=== PATIENT | male | born 1965 | race Hispanic/Latino ===

== ENCOUNTER 2018-01-05 08:13 | Inpatient (IN) | payer BC ==
[2018-01-05] MEDS ORDERED: Sodium Chloride 0.9% 1,000 ML IV STA (08:50)
[2018-01-05] MEDS ORDERED: Dexamethasone 10 MG in Sodium Chloride 0.9% 50 ML IV ONE (08:50)
[2018-01-05 09:16] LABS: BASO % 0.3 % (0.0-2.0); EOS # 0.5 K/uL (0.0-0.7); EOS % 4.8 % (0.0-4.0); HEMOGLOBIN 13.3 g/dL (12.0-18.0); LYMPH # 1.2 K/uL (1.0-4.3); LYMPH % 10.9 % (20.0-40.0); MEAN CELL VOLUME 86.8 fl (80.0-94.0); MEAN CORPUSCULAR HEMOGLOBIN 29.6 pg (27.0-31.0); MEAN CORPUSCULAR HGB CONC 34.1 g/dL (33.0-37.0); MEAN PLATELET VOLUME 8.3 fl (7.2-11.7); MONO # 1.1 K/uL (0.0-0.8); MONO % 9.3 % (0.0-10.0); NEUT # 8.4 K/uL (1.8-7.0); NEUT % 74.7 % (50.0-75.0); NRBC % 0.1 % (0.0-0.0); RBC 4.5 Mil/uL (4.40-5.90); RED CELL DISTRIBUTION WIDTH 13.2 % (11.5-14.5); WHITE BLOOD COUNT 11.3 K/uL (4.8-10.8)
[2018-01-05 09:22] LABS: VENOUS BLOOD GAS BASE EXCESS 0.9 mmol/L (0.0-2.0); VENOUS BLOOD GAS PCO2 60 mmHg (40-60); VENOUS BLOOD GAS PO2 19 mm/Hg (30-55); VENOUS BLOOD PH 7.29 (7.32-7.43)
[2018-01-05 09:25] LABS: ALB/GLOB RATIO 1.1 (1.0-2.1); ALBUMIN 3.8 g/dL (3.5-5.0); ALT/SGPT 24 U/L (21-72); AST/SGOT 18 U/L (17-59); BLOOD UREA NITROGEN 17 mg/dl (9-20); CALCIUM 9.2 mg/dL (8.4-10.2); GFR AFRICAN-AMERICAN > 60; GFR NON-AFRICAN AMERICAN > 60
[2018-01-05] MEDS ORDERED: Iohexol 300 100 ML IJ ONE (09:44)
[2018-01-05] MEDS ORDERED: Sodium Chloride 0.9% 50 ML IV ONE (09:44)
--- NOTE | 2018-01-05 10:07 | RAD ---
HISTORY: cp COMPARISON: No prior. FINDINGS: LUNGS: No active pulmonary disease. PLEURA: No significant pleural effusion identified, no pneumothorax apparent. CARDIOVASCULAR: Cardiomegaly. OSSEOUS STRUCTURES: No significant abnormalities. VISUALIZED UPPER ABDOMEN: Normal. OTHER FINDINGS: None. IMPRESSION: No active disease. Cardiomegaly.
[2018-01-05] MEDS ORDERED: Morphine 4 MG/ML VIAL IVP ONE (10:12)
--- NOTE | 2018-01-05 12:00 | CT ---
PROCEDURE: CT NECK WITH CONTRAST HISTORY: neck swelling cellulitis abscess COMPARISON: None TECHNIQUE: CT of the neck with intravenous contrast. Coronal and sagittal reformats generated. Intravenous contrast dose: Omnipaque 300, 99 cc Radiation dose: DLP 628.36 mGy-cm This CT exam was performed using one or more of the following dose reduction techniques: Automated exposure control, adjustment of the mA and/or kV according to patient size, and/or use of iterative reconstruction technique. FINDINGS: Evaluation of the superficial neck soft tissues is remarkable for extensive dermal thickening and subcutaneous reactive change throughout the neck soft tissues superficial to the platysma from the thyroid cartilage up to level of the lower maxilla bilaterally. No fluid collections appreciate to suggest drainable abscess at this time although phlegmon relatively prominent inferior to than mental soft tissues with irregular dermal margins associated. No emphysema soft tissue changes are appreciated. No mandibular or inferior maxillary erosive changes to suggest osteomyelitis overtly. Evaluation of the deep neck soft tissues reflects prominent edema at the soft palate posteriorly, narrowing the lower Ansari so pharynx to only 2 mm greatest caliber. There is limited bilateral tonsillar pillar enlargement also. There is either chronic erosion or postoperative change related to the car Lantus and bony suggested nasal septum with a large anterior defect identified. Extensive bilateral ethmoid sinusitis is appreciated and nearly occludes the left maxillary sinus. Mild mucosal inflammatory changes affect the right maxillary and left sphenoid sinuses. Left frontal sinus is partially opacified as well. The lamina papyracea appear intact bilaterally with no a fatty injection medial to both that would in the Lala spread of infection into the orbits. The visualized intracranial space unremarkable with the oral cavity grossly nonfocal as well as the hypopharynx and larynx. The thoracic inlet is unremarkable. No contrast enhancement enhancement pattern suggest abscess although phlegmon is developing at the midline to the right submental superficial soft tissues. GLANDS: Parotid and submandibular glands unremarkable. Normal size thyroid gland, without nodule. LYMPH NODES: Supra and infrahyoid lymphadenopathy is appreciated including bilateral submandibular, jugular digastric and infrahyoid jugular digastric lymphadenopathy. Borderline supraclavicular lymphadenopathy is noted bilaterally. CERVICAL SPINE: No fracture or focal lesion. VASCULAR STRUCTURES: Unremarkable. OTHER FINDINGS: None. IMPRESSION: Extensive bilateral ethmoid and left maxillary sinusitis is appreciated partially affecting left frontal, right maxillary and left sphenoid sinuses as well with large bony and cartilaginous nasal septal defect postoperative or postinfectious/ central substance abuse. Extensive lower facial and diffuse neck cellulitis is appreciate without abscess including at the submental soft tissues anteriorly, which appear most affected. Supra and infrahyoid neck lymphadenopathy is appreciated and the nasopharynx soft tissues are edematous resulting in minimal residual lumen into oropharynx. Other than bony nasal septum, no additional bony erosive changes and the orbits appear intact intact. No evidence of intracranial abscess as imaged. Findings discussed with Dr. Martin 01/05/2018 11:45 a.m..
--- NOTE | 2018-01-05 12:02 | CARD ---
APPROVED REPORT EKG Measurement Heart [id number] DC [id number] <Conclusion> Sinus rhythm with premature atrial complexes Otherwise normal ECG
--- NOTE | 2018-01-05 12:06 | CT ---
PROCEDURE: Facial CT with contrast HISTORY: nasal and facial swelling COMPARISON: Neck CT with contrast 01/05/2018. TECHNIQUE: Volumetric CT examination of the face was performed using multiplanar multisequential technique with intravenous contrast. Multiplanar reformatted datasets provided for interpretation. Contrast Dose: Omnipaque 300, 95 cc Radiation dose:Total exam DLP = 628.36 mGy-cm. This CT exam was performed using one or more of the following dose reduction techniques: Automated exposure control, adjustment of the mA and/or kV according to patient size, and/or use of iterative reconstruction technique. FINDINGS: Extensive inflammatory, infectious and postoperative changes are identified involving the bony nasal septum, nasal turbinates and paranasal sinuses as well as the nasopharynx and superficial lower neck and face soft tissues which are described in great detail in separate neck CT also performed 01/05/2018. Please see separate report. Evaluation of the facial soft tissues from the level of the hard palate to the lower segments of the frontal bones reveals nasal dermal thickening diffusely throughout the mid to inferior extent of the nose related to cellulitis without definite abscess. Orbits are intact without suspicious findings with intact lamina papyracea despite prominent ethmoid sinusitis changes. The visualized bilateral frontal, temporal and sphenoid bones are intact exclusive of the bony nasal septum. Remaining skullbase anatomy appears unremarkable. No gross pattern suggests intracranial abscess at this time. IMPRESSION: Prominent nasal soft tissue edema compatible with cellulitis without obvious abscess. Please see separate neck CT with contrast describing prominent nasal sinus, nasopharyngeal and superficial lower facial and neck soft tissue abnormalities in detail. No obvious bilateral orbital pathology.
--- NOTE | 2018-01-05 12:30 | ED PDOC ---
HPI: Skin/Bite Injury Time Seen by Provider: 01/05/18 08:34 Chief Complaint (Nursing): Abnormal Skin Integrity Chief Complaint (Provider): Facial and Neck Swelling History Per: Patient History/Exam Limitations: no limitations Onset/Duration Of Symptoms: Days (2x) Current Symptoms Are (Timing): Still Present Quality Of Symptoms: Painful, Swollen Additional Complaint(s): 52 year old male presents to the ED complaining of lower facial and neck swelling onset for 2 days. Reports there was swelling on his chin initially that spread to the lower part of the chin and neck. Patient also developed pain. States he was seen in [place] and provided antibiotics which he has not refilled. He has had a nasal abscess that was drained months ago. Patient admits he snorts cocaine and heroin daily. Denies fever or vomiting. PMD: [place] Past Medical History Reviewed: Historical Data, Nursing Documentation, Vital Signs Vital Signs: Last Vital Signs Temp 97.8 F 01/06/18 13:00 Pulse 68 01/06/18 13:00 Resp 20 01/06/18 13:00 BP 128/80 01/06/18 13:00 Pulse Ox 99 01/06/18 13:00 - Medical History PMH: No Chronic Diseases - Surgical History Other surgeries: nasal abscess that was drained months ago - Family History Family History: States: Unknown Family Hx - Social History Current smoker - smoking cessation education provided: Yes (Light Smoker < 10 Cigarettes Daily) Alcohol: None Drugs: Cocaine, Other (heroin) - Home Medications Home Medications: Ambulatory Orders Medication Instructions Recorded Insulin Degludec [Tresiba 26 unit SC DAILY 01/05/18 Flextouch U-200] Lisinopril [Zestril] 40 mg PO DAILY 01/05/18 amLODIPine [Norvasc] 5 mg PO DAILY 01/05/18 cloNIDine [Catapres] 0.1 mg PO Q12 01/05/18 - Allergies Allergies/Adverse Reactions: Allergies Allergy/AdvReac Type Severity Reaction Status Date / Time clindamycin Allergy RASH Verified 01/05/18 08:23 Review of Systems ROS Statement: Except As Marked, All Systems Reviewed And Found Negative Constitutional: Negative for: Fever Gastrointestinal: Negative for: Vomiting Skin: Positive for: Other (facial and neck swelling ) Physical Exam - Reviewed Nursing Documentation Reviewed: Yes Vital Signs Reviewed: Yes - Physical Exam Appears: Positive for: Non-toxic, No Acute Distress Head Exam: Positive for: ATRAUMATIC, NORMAL INSPECTION, NORMOCEPHALIC Skin: Positive for: Normal Color, Warm, Dry Eye Exam: Positive for: EOMI, Normal appearance, PERRL ENT: Positive for: Other (swelling and redness on the nose, diffused swelling on the face ). Negative for: Normal ENT Inspection (no swelling or airway obstruction) Neck: Positive for: Supple. Negative for: Normal (redness and swelling with lymphadenopathy) Cardiovascular/Chest: Positive for: Regular Rate, Rhythm. Negative for: Murmur Respiratory: Positive for: Normal Breath Sounds. Negative for: Decreased Breath Sounds, Accessory Muscle Use, Respiratory Distress Gastrointestinal/Abdominal: Positive for: Normal Exam, Bowel Sounds, Soft. Negative for: Tenderness, Guarding, Rebound Back: Positive for: Normal Inspection. Negative for: L CVA Tenderness, R CVA Tenderness Extremity: Positive for: Normal ROM, Tenderness. Negative for: Pedal Edema, Deformity, Swelling Neurologic/Psych: Positive for: Alert, Oriented (x3). Negative for: Motor/ Sensory Deficits - Laboratory Results Result Diagrams: 01/06/18 04:20 01/06/18 04:20 - ECG O2 Sat by Pulse Oximetry: 95 (RA) Pulse Ox Interpretation: Normal Medical Decision Making Medical Decision Making: Time: 0848 Initial Impression: facial and neck swelling Differential Diagnosis includes but is not limited to: cellulites of face and neck, deep soft tissue infection r/o abscess of face and neck Initial Plan: --Venous Blood Gas Shock Panel --Maxillofacial w/ Contrast CT --Neck Soft Tissue w/ Contrast CT --EKG --CMP --Drug Screen, Urine --CBC w/ Differential --Chest Portable [RAD] --Glucose, POC Routine --Decadron Inj 10mg Dosium Chloride 0.9% 50ml --Morphine 4mg --Normal Saline 1000 mls/hr --Unasyn 3gm Sodium Chloride 0.9% 100ml --Vancomycin Inj 1gm Sodium Chloride 0.9% 250ml --Urinalysis Time: 1005 HISTORY: cp COMPARISON: No prior. FINDINGS: LUNGS: No active pulmonary disease. PLEURA: No significant pleural effusion identified, no pneumothorax apparent. CARDIOVASCULAR: Cardiomegaly. OSSEOUS STRUCTURES: No significant abnormalities. VISUALIZED UPPER ABDOMEN: Normal. OTHER FINDINGS: None. IMPRESSION: No active disease. Cardiomegaly. Time: 1158 PROCEDURE: CT NECK WITH CONTRAST HISTORY: neck swelling cellulitis abscess COMPARISON: None TECHNIQUE: CT of the neck with intravenous contrast. Coronal and sagittal reformats generated. Intravenous contrast dose: Omnipaque 300, 99 cc Radiation dose: DLP 628.36 mGy-cm This CT exam was performed using one or more of the following dose reduction techniques: Automated exposure control, adjustment of the mA and/or kV according to patient size, and/or use of iterative reconstruction technique. FINDINGS: Evaluation of the superficial neck soft tissues is remarkable for extensive dermal thickening and subcutaneous reactive change throughout the neck soft tissues superficial to the platysma from the thyroid cartilage up to level of the lower maxilla bilaterally. No fluid collections appreciate to suggest drainable abscess at this time although phlegmon relatively prominent inferior to than mental soft tissues with irregular dermal margins associated. No emphysema soft tissue changes are appreciated. No mandibular or inferior maxillary erosive changes to suggest osteomyelitis overtly. Evaluation of the deep neck soft tissues reflects prominent edema at the soft palate posteriorly, narrowing the lower Ansari so pharynx to only 2 mm greatest caliber. There is limited bilateral tonsillar pillar enlargement also. There is either chronic erosion or postoperative change related to the car Lantus and bony suggested nasal septum with a large anterior defect identified. Extensive bilateral ethmoid sinusitis is appreciated and nearly occludes the left maxillary sinus. Mild mucosal inflammatory changes affect the right maxillary and left sphenoid sinuses. Left frontal sinus is partially opacified as well. The lamina papyracea appear intact bilaterally with no a fatty injection medial to both that would in the Lala spread of infection into the orbits. The visualized intracranial space unremarkable with the oral cavity grossly nonfocal as well as the hypopharynx and larynx. The thoracic inlet is unremarkable. No contrast enhancement enhancement pattern suggest abscess although phlegmon is developing at the midline to the right submental superficial soft tissues. GLANDS: Parotid and submandibular glands unremarkable. Normal size thyroid gland, without nodule. LYMPH NODES: Supra and infrahyoid lymphadenopathy is appreciated including bilateral submandibular, jugular digastric and infrahyoid jugular digastric lymphadenopathy. Borderline supraclavicular lymphadenopathy is noted bilaterally. CERVICAL SPINE: No fracture or focal lesion. VASCULAR STRUCTURES: Unremarkable. OTHER FINDINGS: None. IMPRESSION: Extensive bilateral ethmoid and left maxillary sinusitis is appreciated partially affecting left frontal, right maxillary and left sphenoid sinuses as well with large bony and cartilaginous nasal septal defect postoperative or postinfectious/ central substance abuse. Extensive lower facial and diffuse neck cellulitis is appreciate without abscess including at the submental soft tissues anteriorly, which appear most affected. Supra and infrahyoid neck lymphadenopathy is appreciated and the nasopharynx soft tissues are edematous resulting in minimal residual lumen into oropharynx. Other than bony nasal septum, no additional bony erosive changes and the orbits appear intact intact. No evidence of intracranial abscess as imaged. Findings discussed with Dr. Martin 01/05/2018 11:45 a.m.. Time: 1204 PROCEDURE: Facial CT with contrast HISTORY: nasal and facial swelling COMPARISON: Neck CT with contrast 01/05/2018. TECHNIQUE: Volumetric CT examination of the face was performed using multiplanar multisequential technique with intravenous contrast. Multiplanar reformatted datasets provided for interpretation. Contrast Dose: Omnipaque 300, 95 cc Radiation dose:Total exam DLP = 628.36 mGy-cm. This CT exam was performed using one or more of the following dose reduction techniques: Automated exposure control, adjustment of the mA and/or kV according to patient size, and/or use of iterative reconstruction technique. FINDINGS: Extensive inflammatory, infectious and postoperative changes are identified involving the bony nasal septum, nasal turbinates and paranasal sinuses as well as the nasopharynx and superficial lower neck and face soft tissues which are described in great detail in separate neck CT also performed 01/05/2018. Please see separate report. Evaluation of the facial soft tissues from the level of the hard palate to the lower segments of the frontal bones reveals nasal dermal thickening diffusely throughout the mid to inferior extent of the nose related to cellulitis without definite abscess. Orbits are intact without suspicious findings with intact lamina papyracea despite prominent ethmoid sinusitis changes. The visualized bilateral frontal, temporal and sphenoid bones are intact exclusive of the bony nasal septum. Remaining skullbase anatomy appears unremarkable. No gross pattern suggests intracranial abscess at this time. IMPRESSION: Prominent nasal soft tissue edema compatible with cellulitis without obvious abscess. Please see separate neck CT with contrast describing prominent nasal sinus, nasopharyngeal and superficial lower facial and neck soft tissue abnormalities in detail. No obvious bilateral orbital pathology. Time: [address] results discussed with Dr. Arango. He examined the patient at the bedside. He recommends admission for IV abx and airway monitoring. Time: 1210 Discussed the case with Dr. Lay for admission. Scribe Attestation: Documented by Tanya Martin, acting as a scribe for Shalini Martin MD Provider Scribe Attestation: All medical record entries made by the Scribe were at my direction and personally dictated by me. I have reviewed the chart and agree that the record accurately reflects my personal performance of the history, physical exam, medical decision making, and the department course for this patient. I have also personally directed, reviewed, and agree with the discharge instructions and disposition. Disposition - Clinical Impression Clinical Impression: Facial cellulitis, Substance abuse - Patient ED Disposition Is Patient to be Admitted: No Discussed With Dr.: Gianni Lay Doctor Will See Patient In The: Hospital Counseled Patient/Family Regarding: Studies Performed, Diagnosis - Disposition Disposition Time: 12:12 Condition: FAIR - Pt Status Changed To: Hospital Disposition Of: Inpatient - Admit Certification Admit to Inpatient:: After my assessment, the patient will require hospitalization for at least two midnights. This is because of the severity of symptoms shown, intensity of services needed, and/or the medical risk in this patient being treated as an outpatient. - POA Present On Arrival: Poor Glycemic Control
[2018-01-05] MEDS ORDERED: Povidone Iodine Topical 10% Sol ONE (12:50)
[2018-01-05] MEDS ORDERED: Morphine 4 MG/ML VIAL ONE (12:56)
--- NOTE | 2018-01-05 13:41 | CP.PCM.HP ---
History of Present Illness - History of Present Illness History of Present Illness: 52 yo male with history of DM2 and HTN came in with painful swelling and redness of the chin extending to the right cheek since 3 days ago. He was seen at [facility] ER on Thursday and was given IV antibiotic. He was sent home with a prescription for oral antibiotic but never filled them up. This morning he woke up with much swelling and pain on his chin and had some difficulty enunciating words. He denied SOB or dysphagia. Also denied fever or chills. Patient had nasal surgery in Nov, 2017 because of bad infection in the nose. Mother claimed the nose was just irrigated. Patient admitted to snipping cocaine which caused the infection in his nose. The patient was supposed to take antibiotics after the nasal procedure but again never bothered filling up the prescription. He never followed with his physician who did his nose. Patient is very non-compliant even with his diabetic and BP medications. Last dose of Lantus was 3 weeks ago. He also never complied with his BP medications. Present on Admission - Present on Admission Any Indicators Present on Admission: No History of DVT/PE: No History of Uncontrolled Diabetes: No Urinary Catheter: No Decubitus Ulcer Present: No Review of Systems - Review of Systems All systems: reviewed and no additional remarkable complaints except (aside from those mentioned above, 12 point system review were negative by me) Past Patient History - Tetanus Immunizations Tetanus Immunization: Unknown - Past Medical History & Family History Past Medical History?: Yes Past Family History: Reviewed and not pertinent - Past Social History Smoking Status: Light Smoker < 10 Cigarettes Daily Chewing Tobacco Use: No Cigar Use: No Alcohol: None Drugs: Cocaine, Prescription medications - CARDIAC Hx Hypertension: Yes - PULMONARY Hx Respiratory Disorders: No - NEUROLOGICAL Hx Neurological Disorder: No - HEENT Hx HEENT Problems: No - RENAL Hx Chronic Kidney Disease: No - ENDOCRINE/METABOLIC Hx Diabetes Mellitus Type 1: Yes - HEMATOLOGICAL/ONCOLOGICAL Hx Blood Disorders: No - INTEGUMENTARY Hx Dermatological Problems: No - MUSCULOSKELETAL/RHEUMATOLOGICAL Hx Musculoskeletal Disorders: No - GASTROINTESTINAL Hx Gastrointestinal Disorders: No - GENITOURINARY/GYNECOLOGICAL Hx Genitourinary Disorders: No - PSYCHIATRIC Hx Psychophysiologic Disorder: No Hx Substance Use: No - SURGICAL HISTORY Other/Comment: nose surgery due to infection - ANESTHESIA Hx Anesthesia: Yes Hx Anesthesia Reactions: No Meds Allergies/Adverse Reactions: Allergies Allergy/AdvReac Type Severity Reaction Status Date / Time clindamycin Allergy RASH Verified 01/05/18 08:23 Physical Exam - Constitutional Appears: No Acute Distress - Head Exam Head Exam: ATRAUMATIC - Eye Exam Eye Exam: absent: Normal appearance (slightly swollen nostrils, red swelling of the chin extending to the right cheek) - ENT Exam ENT Exam: Mucous Membranes Moist - Neck Exam Neck exam: Negative for: Meningismus - Respiratory Exam Respiratory Exam: absent: Rales, Rhonchi, Wheezes, Respiratory Distress, Stridor - Cardiovascular Exam Cardiovascular Exam: REGULAR RHYTHM, +S1, +S2 - GI/Abdominal Exam GI & Abdominal Exam: Soft. absent: Tenderness - Rectal Exam Rectal Exam: Deferred - Back Exam Back exam: NORMAL INSPECTION - Neurological Exam Neurological exam: Alert, Oriented x3 - Psychiatric Exam Psychiatric exam: Normal Affect - Skin Skin Exam: Dry, Intact Results - Vital Signs Recent Vital Signs: Last Vital Signs Temp 97.7 F 01/05/18 08:23 Pulse 78 01/05/18 11:45 Resp 16 01/05/18 11:45 BP 144/90 01/05/18 11:45 Pulse Ox 95 01/05/18 12:30 - Labs Result Diagrams: 01/05/18 09:00 01/05/18 09:00 Labs: Laboratory Results - last 24 hr 01/05/18 01/05/18 01/05/18 09:00 09:00 09:00 WBC 11.3 H RBC 4.50 Hgb 13.3 Hct 39.1 MCV 86.8 MCH 29.6 MCHC 34.1 RDW 13.2 Plt Count 219 MPV 8.3 Neut % (Auto) 74.7 Lymph % (Auto) 10.9 L [place] % (Auto) 9.3 Eos % (Auto) 4.8 H Baso % (Auto) 0.3 Neut # (Auto) 8.4 H Lymph # (Auto) 1.2 [place] # (Auto) 1.1 H Eos # (Auto) 0.5 Baso # (Auto) 0.0 pO2 19 L VBG pH 7.29 L VBG pCO2 60 VBG HCO3 23.6 VBG Total CO2 30.7 H VBG O2 Sat (Calc) 36.2 L VBG Base Excess 0.9 VBG Potassium 3.7 Sodium 138 136.0 Chloride 100 101.0 Glucose 139 H Lactate 0.9 FiO2 21.0 Potassium 3.7 Carbon Dioxide 27 Anion Gap 15 BUN 17 Creatinine 0.6 L Est GFR ( Amer) > 60 Est GFR (Non-Af Amer) > 60 POC Glucose (mg/dL) Random Glucose 134 H Calcium 9.2 Total Bilirubin 0.9 AST 18 ALT 24 Alkaline Phosphatase 106 Total Protein 7.3 Albumin 3.8 Globulin 3.5 Albumin/Globulin Ratio 1.1 Venous Blood Potassium 3.7 01/05/18 11:44 WBC RBC Hgb Hct MCV MCH MCHC RDW Plt Count MPV Neut % (Auto) Lymph % (Auto) [place] % (Auto) Eos % (Auto) Baso % (Auto) Neut # (Auto) Lymph # (Auto) [place] # (Auto) Eos # (Auto) Baso # (Auto) pO2 VBG pH VBG pCO2 VBG HCO3 VBG Total CO2 VBG O2 Sat (Calc) VBG Base Excess VBG Potassium Sodium Chloride Glucose Lactate FiO2 Potassium Carbon Dioxide Anion Gap BUN Creatinine Est GFR ( Amer) Est GFR (Non-Af Amer) POC Glucose (mg/dL) 132 H Random Glucose Calcium Total Bilirubin AST ALT Alkaline Phosphatase Total Protein Albumin Globulin Albumin/Globulin Ratio Venous Blood Potassium Assessment & Plan - Assessment and Plan (Free Text) Assessment: 52 yo male with history of DM2 and HTN came in with painful swelling and redness of the chin extending to the right cheek since 3 days ago. He was seen at [facility] ER on Thursday and was given IV antibiotic. He was sent home with a prescription for oral antibiotic but never filled them up. This morning he woke up with much swelling and pain on his chin and had some difficulty enunciating words. He denied SOB or dysphagia. Also denied fever or chills. Patient had nasal surgery in Nov, 2017 because of bad infection in the nose. Mother claimed the nose was just irrigated. Patient admitted to snipping cocaine which caused the infection in his nose. The patient was supposed to take antibiotics after the nasal procedure but again never bothered filling up the prescription. He never followed with his physician who did his nose. Patient is very non-compliant even with his diabetic and BP medications. Last dose of Lantus was 3 weeks ago. He also never complied with his BP medications. 1. Facial Cellulitis blood and wound culture continue Unasyn and Vanco continue Decadron Dr Arango on ENT consult 2. DM2 BS relatively controlled in spite of non-compliance accuchek ACHS with medium Lispro coverage HgA1C, BMP in am 3. HTN BP uncontrolled continue Amlodipin, Clonidine 4. DVT prophylaxis venodyne boots while in bed
[2018-01-05] MEDS: Sodium Chloride 0.9% 1,000 ML IV SCH (18:00)
--- NOTE | 2018-01-05 18:11 | CP.PCM.PN ---
Subjective - Date & Time of Evaluation Date of Evaluation: 01/05/18 Time of Evaluation: 18:05 - Subjective Subjective: I D NOTE FULL CONSULT DICTATED AGREE c PRESENT ANTIBIOTIC COVERAGE WOULD RX IN HOSPITAL FOR A REASONABLE PERIOD CONSIDERING HIS DM AND NON COMPLIANCE Objective - Vital Signs/Intake and Output Vital Signs (last 24 hours): Temp Pulse Resp BP Pulse Ox 98.2 F 71 16 126/80 95 01/05/18 15:49 01/05/18 15:49 01/05/18 15:49 01/05/18 15:49 01/05/18 17:53 - Medications Medications: Current Medications Clonidine HCl (Catapres) 0.1 mg PO Q12 JAZ Sodium Chloride (Sodium Chloride 0.9%) 1,000 mls @ 100 mls/hr IV .Q10H JAZ Last Admin: 01/05/18 18:00 Dose: 100 mls/hr Ampicillin Sodium/Sulbactam (Sodium 3 gm/ Sodium Chloride) 100 mls @ 100 mls/ hr IVPB Q6 JAZ PRN Reason: Protocol Last Admin: 01/05/18 17:53 Dose: 100 mls/hr Vancomycin HCl 1 gm/ Sodium (Chloride) 250 mls @ 166.667 mls/hr IVPB Q12 JAZ PRN Reason: Protocol Ketorolac Tromethamine (Toradol) 30 mg IVP Q6 PRN PRN Reason: Pain, moderate (4-7) Lisinopril (Zestril) 40 mg PO DAILY JAZ Pantoprazole Sodium (Protonix Ec Tab) 40 mg PO DAILY JAZ - Labs Labs: 01/05/18 09:00 01/05/18 09:00
[2018-01-05 21:07] LABS: URINE BILIRUBIN NEGATIVE (NEGATIVE); URINE BLOOD NEGATIVE (NEGATIVE); URINE CLARITY CLEAR (Clear); URINE COLOR YELLOW (YELLOW); URINE GLUCOSE (UA) NEG (Normal); URINE LEUKOCYTE ESTERASE NEG Leu/uL (Negative); URINE PROTEIN NEGATIVE (NEGATIVE); URINE UROBILINOGEN 0.2-1.0 mg/dL (0.2-1.0)
[2018-01-05 21:22] LABS: BARBITURATES, UR NEGATIVE (NEGATIVE)
[2018-01-05 21:26] LABS: BENZODIAZEPINES, UR NEGATIVE (NEGATIVE); OPIATES, UR POSITIVE (NEGATIVE); PHENCYCLIDINE, UR NEGATIVE (NEGATIVE)
--- NOTE | 2018-01-05 22:30 | OP ---
PROCEDURE DATE: 01/05/2018 PREOPERATIVE DIAGNOSIS: Chin abscess. POSTOPERATIVE DIAGNOSIS: Chin abscess. PROCEDURE: Incision and drainage of chin abscess. DESCRIPTION OF PROCEDURE: The patient was placed in seated position. The area was prepped and draped in the usual sterile manner. The area was injected with lidocaine with epinephrine for anesthesia. Clamp was used to insert to the abscess that was somewhat open. It was widely opened. Cultures were taken. The patient tolerated the procedure well. Edouard Arango MD
--- NOTE | 2018-01-06 04:50 | CON ---
DATE: 01/05/2018 INFECTIOUS DISEASE CONSULT HISTORY OF PRESENT ILLNESS: The patient is a 52-year-old male with history of diabetes and hypertension. He came in with painful swallowing and erythema of the chin, extending to the right cheek, which probably began according to him 2 days ago. He had been seen in [facility] ER on Thursday and was given IV antibiotics. As per him and his mother, they were afraid of the swelling in the neck going on to causing obstruction of the breathing tube. Upon evaluation, they were probably ruling out Harrison syndrome. He was sent home with a prescription for oral antibiotics, but apparently never filled them. He starting noting the swelling on the chin getting worse and he had like a hole there, which he said thought was an insect bite, and he noted he could not speak appropriately. There was no shortness of breath, no chest pain, and he denied any fever or chills. The patient had nasal sinus surgery in 11/2017 because of a bad infection in the nose. The patient does have a significant history of snorting cocaine or intranasal cocaine, which apparently caused the infection in the nose. He has no septum. At that time, he was given antibiotics to take and he did not take them, and actually did not follow up with the physician. As per discussion with him, he admits to being noncompliant with most of his medications. PHYSICAL EXAMINATION: GENERAL: The patient is alert, cooperative, and oriented to time and place. NECK: Has tender adenopathy and swelling submentally and the chin is erythematous and has a mildly draining lesion in the mid chin point, which was an area which the ENT physician drained early and took . LUNGS: Clear. HEART: Regular sinus rhythm. ABDOMEN: Soft. Positive bowel sounds. EXTREMITIES: No C, C, E. DIAGNOSTICS: Micro, waiting those cultures. WBC is 11.3, hemoglobin 13.3, platelets are 219, polys are 74.7. Chemistry: BUN 17, creatinine 0.6, GFR 60. Blood sugar is 134. Maxillofacial CT and soft tissue of neck with significant findings. ASSESSMENT AND PLAN: At present time, the patient is on vancomycin 1 gm every 12 hours and Unasyn 3 gm IV piggy bag every 6 hours. We will continue with the present therapy and maintain lower doses if necessary. Also, awaiting culture results for coverage, especially after the IV antibiotics have done. Jeremy Vela MD [facility] # [id number]
[2018-01-06 05:31] LABS: BASO % 0.3 % (0.0-2.0); EOS % 0.2 % (0.0-4.0); HEMOGLOBIN 11.8 g/dL (12.0-18.0); LYMPH # 0.9 K/uL (1.0-4.3); MEAN CELL VOLUME 87.2 fl (80.0-94.0); MEAN CORPUSCULAR HEMOGLOBIN 29.9 pg (27.0-31.0); MEAN CORPUSCULAR HGB CONC 34.3 g/dL (33.0-37.0); MEAN PLATELET VOLUME 8.5 fl (7.2-11.7); MONO % 8.5 % (0.0-10.0); NEUT # 9.5 K/uL (1.8-7.0); PLATELET COUNT 205 K/uL (130-400); RBC 3.95 Mil/uL (4.40-5.90); RED CELL DISTRIBUTION WIDTH 13.1 % (11.5-14.5); WHITE BLOOD COUNT 11.4 K/uL (4.8-10.8)
[2018-01-06 05:53] LABS: BLOOD UREA NITROGEN 17 mg/dl (9-20); CALCIUM 8.3 mg/dL (8.4-10.2); GFR AFRICAN-AMERICAN > 60; GFR NON-AFRICAN AMERICAN > 60
[2018-01-06] MEDS: Sodium Chloride 0.9% 1,000 ML IV SCH ×3 (05:53→20:49)
[2018-01-06 08:54] LABS: LYMPHOCYTE 9 % (20-50); MONOCYTE 5 % (0-10); NEUTROPHIL 86 % (42-75); TOTAL CELLS COUNTED 100
[2018-01-06 09:01] LABS: PLATELET ESTIMATE NORMAL (NORMAL)
[2018-01-06] MEDS: Insulin Lispro (humaLOG) 100 Units/ml Inj SC SCH ×4 (09:01→22:48)
[2018-01-06] MEDS: Pantoprazole 40 mg EC Tab PO SCH (09:02)
--- NOTE | 2018-01-06 16:24 | CP.PCM.PN ---
Subjective - Date & Time of Evaluation Date of Evaluation: 01/06/18 Time of Evaluation: 16:00 - Subjective Subjective: Patient seen and examined. Swelling and redness on the chin and right cheek almost totally subsided. Patient admitted feeling much better and willing to stay for the IV antibiotics. Objective - Vital Signs/Intake and Output Vital Signs (last 24 hours): Temp Pulse Resp BP Pulse Ox 97.5 F L 63 20 139/86 97 01/06/18 15:51 01/06/18 15:51 01/06/18 15:51 01/06/18 15:51 01/06/18 15:51 - Medications Medications: Current Medications Clonidine HCl (Catapres) 0.1 mg PO Q12 [facility] Last Admin: 01/06/18 09:00 Dose: 0.1 mg Sodium Chloride (Sodium Chloride 0.9%) 1,000 mls @ 100 mls/hr IV .Q10H [facility] Last Admin: 01/06/18 09:11 Dose: 100 mls/hr Ampicillin Sodium/Sulbactam (Sodium 3 gm/ Sodium Chloride) 100 mls @ 100 mls/ hr IVPB Q6 JAZ PRN Reason: Protocol Last Admin: 01/06/18 16:19 Dose: 100 mls/hr Vancomycin HCl 1 gm/ Sodium (Chloride) 250 mls @ 166.667 mls/hr IVPB Q12 JAZ PRN Reason: Protocol Last Admin: 01/06/18 09:06 Dose: 166.667 mls/hr Insulin Human Lispro (Humalog) 0 units SC ACHS JAZ PRN Reason: Protocol Ketorolac Tromethamine (Toradol) 30 mg IVP Q6 PRN PRN Reason: Pain, moderate (4-7) Last Admin: 01/06/18 09:14 Dose: 30 mg Lisinopril (Zestril) 40 mg PO DAILY [facility] Last Admin: 01/06/18 09:02 Dose: 40 mg Pantoprazole Sodium (Protonix Ec Tab) 40 mg PO DAILY JAZ Last Admin: 01/06/18 09:02 Dose: 40 mg - Labs Labs: 01/06/18 04:20 01/06/18 04:20 - Constitutional Appears: No Acute Distress - Head Exam Head Exam: ATRAUMATIC - Eye Exam Eye Exam: absent: Scleral icterus - ENT Exam ENT Exam: Mucous Membranes Moist - Neck Exam Neck Exam: absent: Meningismus - Respiratory Exam Respiratory Exam: absent: Rales, Rhonchi, Wheezes, Respiratory Distress - Cardiovascular Exam Cardiovascular Exam: REGULAR RHYTHM, +S1, +S2 - GI/Abdominal Exam GI & Abdominal Exam: Soft. absent: Tenderness - Rectal Exam Rectal Exam: Deferred - Extremities Exam Extremities Exam: absent: Calf Tenderness, Pedal Edema - Back Exam Back Exam: absent: tenderness - Neurological Exam Neurological Exam: Alert, Oriented x3 - Psychiatric Exam Psychiatric exam: Normal Affect - Skin Skin Exam: Dry, Intact Assessment and Plan - Assessment and Plan (Free Text) Assessment: 52 yo male with history of DM2 and HTN came in with painful swelling and redness of the chin extending to the right cheek since 3 days ago. He was seen at [facility] ER on Thursday and was given IV antibiotic. He was sent home with a prescription for oral antibiotic but never filled them up. This morning he woke up with much swelling and pain on his chin and had some difficulty enunciating words. He denied SOB or dysphagia. Also denied fever or chills. Patient had nasal surgery in Nov, 2017 because of bad infection in the nose. Mother claimed the nose was just irrigated. Patient admitted to snipping cocaine which caused the infection in his nose. The patient was supposed to take antibiotics after the nasal procedure but again never bothered filling up the prescription. He never followed with his physician who did his nose. Patient is very non-compliant even with his diabetic and BP medications. Last dose of Lantus was 3 weeks ago. He also never complied with his BP medications. 1. Facial Cellulitis wound culture: grew gram positive cocci blood culture: still no growth continue Unasyn and Vanco Vanco trough in am Dr Vela on ID consult 2. DM2 BS uncontrolled accuchek ACHS with low Lispro coverage HgA1C: 7.1 Metformin 850mg PO q am 3. HTN BP controlled continue Amlodipine, Clonidine 4. DVT prophylaxis venodyne boots while in bed
--- NOTE | 2018-01-06 18:02 | CP.PCM.PN ---
Subjective - Date & Time of Evaluation Date of Evaluation: 01/06/18 Time of Evaluation: 18:00 - Subjective Subjective: I D NOTE AFEBRILE COMPLAINING OF PAIN SWELLING DECREASED CONTINUE I V RX STILL HAS INCREASED POLYS Objective - Vital Signs/Intake and Output Vital Signs (last 24 hours): Temp Pulse Resp BP Pulse Ox 97.5 F L 63 20 139/86 97 01/06/18 15:51 01/06/18 15:51 01/06/18 15:51 01/06/18 15:51 01/06/18 15:51 - Medications Medications: Current Medications Clonidine HCl (Catapres) 0.1 mg PO Q12 [facility] Last Admin: 01/06/18 09:00 Dose: 0.1 mg Sodium Chloride (Sodium Chloride 0.9%) 1,000 mls @ 100 mls/hr IV .Q10H [facility] Last Admin: 01/06/18 09:11 Dose: 100 mls/hr Ampicillin Sodium/Sulbactam (Sodium 3 gm/ Sodium Chloride) 100 mls @ 100 mls/ hr IVPB Q6 JAZ PRN Reason: Protocol Last Admin: 01/06/18 16:19 Dose: 100 mls/hr Vancomycin HCl 1 gm/ Sodium (Chloride) 250 mls @ 166.667 mls/hr IVPB Q12 JAZ PRN Reason: Protocol Last Admin: 01/06/18 09:06 Dose: 166.667 mls/hr Insulin Human Lispro (Humalog) 0 units SC ACHS JAZ PRN Reason: Protocol Last Admin: 01/06/18 16:40 Dose: Not Given Ketorolac Tromethamine (Toradol) 30 mg IVP Q6 PRN PRN Reason: Pain, moderate (4-7) Last Admin: 01/06/18 16:24 Dose: 30 mg Lisinopril (Zestril) 40 mg PO DAILY [facility] Last Admin: 01/06/18 09:02 Dose: 40 mg Metformin HCl (Glucophage) 850 mg PO BRK [facility] Pantoprazole Sodium (Protonix Ec Tab) 40 mg PO DAILY [facility] Last Admin: 01/06/18 09:02 Dose: 40 mg - Labs Labs: 01/06/18 04:20 01/06/18 04:20
[2018-01-06] MEDS ORDERED: Insulin Detemir 100 Units/ml Inj SC SCH (22:00)
[2018-01-07] MEDS: Sodium Chloride 0.9% 1,000 ML IV SCH (04:54)
[2018-01-07 08:19] VITALS: RESP 20
[2018-01-07] MEDS: Pantoprazole 40 mg EC Tab PO SCH (08:23)
[2018-01-07] MEDS: Insulin Lispro (humaLOG) 100 Units/ml Inj SC SCH ×2 (08:29→12:11)
[2018-01-07 09:15] LABS: HEMOGLOBIN 11.8 g/dL (12.0-18.0); MEAN CELL VOLUME 86.6 fl (80.0-94.0); MEAN CORPUSCULAR HEMOGLOBIN 29.6 pg (27.0-31.0); MEAN CORPUSCULAR HGB CONC 34.2 g/dL (33.0-37.0); RED CELL DISTRIBUTION WIDTH 13.4 % (11.5-14.5); WHITE BLOOD COUNT 8.4 K/uL (4.8-10.8)
--- NOTE | 2018-01-07 10:45 | CP.PCM.PN ---
Objective - Vital Signs/Intake and Output Vital Signs (last 24 hours): Temp Pulse Resp BP Pulse Ox 98.4 F 68 20 184/98 H 100 01/07/18 08:00 01/07/18 08:24 01/07/18 08:00 01/07/18 08:24 01/07/18 08:00 - Medications Medications: Current Medications Clonidine HCl (Catapres) 0.1 mg PO Q12 [facility] Last Admin: 01/07/18 08:23 Dose: 0.1 mg Sodium Chloride (Sodium Chloride 0.9%) 1,000 mls @ 100 mls/hr IV .Q10H [facility] Last Admin: 01/07/18 04:54 Dose: 100 mls/hr Ampicillin Sodium/Sulbactam (Sodium 3 gm/ Sodium Chloride) 100 mls @ 100 mls/ hr IVPB Q6 JAZ PRN Reason: Protocol Last Admin: 01/07/18 09:33 Dose: 100 mls/hr Vancomycin HCl 1 gm/ Sodium (Chloride) 250 mls @ 166.667 mls/hr IVPB Q12 JZA PRN Reason: Protocol Last Admin: 01/07/18 08:27 Dose: 166.667 mls/hr Insulin Human Lispro (Humalog) 0 units SC ACHS JAZ PRN Reason: Protocol Last Admin: 01/07/18 08:29 Dose: 1 unit Ketorolac Tromethamine (Toradol) 30 mg IVP Q4H PRN PRN Reason: Pain, moderate (4-7) Last Admin: 01/07/18 09:31 Dose: 30 mg Lisinopril (Zestril) 40 mg PO DAILY [facility] Last Admin: 01/07/18 08:24 Dose: 40 mg Metformin HCl (Glucophage) 850 mg PO BRK [facility] Last Admin: 01/07/18 08:23 Dose: 850 mg Pantoprazole Sodium (Protonix Ec Tab) 40 mg PO DAILY [facility] Last Admin: 01/07/18 08:23 Dose: 40 mg - Labs Labs: 01/07/18 08:52 01/06/18 04:20
--- NOTE | 2018-01-07 11:56 | CP.PCM.DIS ---
Provider - Provider Date of Admission: 01/05/18 12:12 Attending physician: Gianni Lay MD Time Spent in preparation of Discharge (in minutes): 25 Diagnosis - Discharge Diagnosis (1) Facial abscess Status: Acute (2) Facial cellulitis Status: Acute (3) Hypertension Status: Chronic (4) Uncontrolled diabetes mellitus Status: Chronic Hospital Course - Lab Results Lab Results: Micro Results 01/05/18 09:45 Blood-Venous Blood Culture - Preliminary NO GROWTH AFTER 48 HOURS 01/05/18 09:00 Blood Blood Culture - Preliminary NO GROWTH AFTER 48 HOURS 01/05/18 13:20 Abscess - Chin Gram Stain - Final 01/05/18 13:20 Abscess - Chin Wound Culture - Final Methicillin Resistant S Aureus Most Recent Lab Values WBC 8.4 K/uL (4.8-10.8) 01/07/18 08:52 RBC 4.00 Mil/uL (4.40-5.90) L 01/07/18 08:52 Hgb 11.8 g/dL (12.0-18.0) L 01/07/18 08:52 Hct 34.6 % (35.0-51.0) L 01/07/18 08:52 MCV 86.6 fl (80.0-94.0) 01/07/18 08:52 MCH 29.6 pg (27.0-31.0) 01/07/18 08:52 MCHC 34.2 g/dL (33.0-37.0) 01/07/18 08:52 RDW 13.4 % (11.5-14.5) 01/07/18 08:52 Plt Count 230 K/uL (130-400) 01/07/18 08:52 MPV 8.5 fl (7.2-11.7) 01/06/18 04:20 Neut % (Auto) 83.0 % (50.0-75.0) H 01/06/18 04:20 Lymph % (Auto) 8.0 % (20.0-40.0) L 01/06/18 04:20 Garza % (Auto) 8.5 % (0.0-10.0) 01/06/18 04:20 Eos % (Auto) 0.2 % (0.0-4.0) 01/06/18 04:20 Baso % (Auto) 0.3 % (0.0-2.0) 01/06/18 04:20 Neut # (Auto) 9.5 K/uL (1.8-7.0) H 01/06/18 04:20 Lymph # (Auto) 0.9 K/uL (1.0-4.3) L 01/06/18 04:20 Garza # (Auto) 1.0 K/uL (0.0-0.8) H 01/06/18 04:20 Eos # (Auto) 0.0 K/uL (0.0-0.7) 01/06/18 04:20 Baso # (Auto) 0.0 K/uL (0.0-0.2) 01/06/18 04:20 Neutrophils % (Manual) 86 % (42-75) H 01/06/18 04:20 Lymphocytes % (Manual) 9 % (20-50) L 01/06/18 04:20 Monocytes % (Manual) 5 % (0-10) 01/06/18 04:20 Platelet Estimate Normal (NORMAL) 01/06/18 04:20 pO2 19 mm/Hg (30-55) L 01/05/18 09:00 VBG pH 7.29 (7.32-7.43) L 01/05/18 09:00 VBG pCO2 60 mmHg (40-60) 01/05/18 09:00 VBG HCO3 23.6 mmol/L 01/05/18 09:00 VBG Total CO2 30.7 mmol/L (22-28) H 01/05/18 09:00 VBG O2 Sat (Calc) 36.2 % (40-65) L 01/05/18 09:00 VBG Base Excess 0.9 mmol/L (0.0-2.0) 01/05/18 09:00 VBG Potassium 3.7 mmol/L (3.6-5.2) 01/05/18 09:00 Sodium 136.0 mmol/L (132-148) 01/05/18 09:00 Chloride 101.0 mmol/L (98-107) 01/05/18 09:00 Glucose 139 mg/dL (75-110) H 01/05/18 09:00 Lactate 0.9 mmol/L (0.7-2.1) 01/05/18 09:00 FiO2 21.0 % 01/05/18 09:00 Sodium 138 mmol/l (132-148) 01/06/18 04:20 Potassium 3.7 MMOL/L (3.6-5.0) 01/06/18 04:20 Chloride 104 mmol/L (98-107) 01/06/18 04:20 Carbon Dioxide 25 mmol/L (22-30) 01/06/18 04:20 Anion Gap 13 (10-20) 01/06/18 04:20 BUN 17 mg/dl (9-20) 01/06/18 04:20 Creatinine 0.6 mg/dl (0.8-1.5) L 01/06/18 04:20 Est GFR ( Amer) > 60 01/06/18 04:20 Est GFR (Non-Af Amer) > 60 01/06/18 04:20 POC Glucose (mg/dL) 173 mg/dL (65-110) H 01/07/18 11:10 Random Glucose 243 mg/dL (75-110) H 01/06/18 04:20 Hemoglobin A1c 7.1 % (4.2-6.5) H 01/06/18 04:20 Calcium 8.3 mg/dL (8.4-10.2) L 01/06/18 04:20 Total Bilirubin 0.9 mg/dl (0.2-1.3) 01/05/18 09:00 AST 18 U/L (17-59) 01/05/18 09:00 ALT 24 U/L (21-72) 01/05/18 09:00 Alkaline Phosphatase 106 U/L (38-126) 01/05/18 09:00 Total Protein 7.3 G/DL (6.3-8.2) 01/05/18 09:00 Albumin 3.8 g/dL (3.5-5.0) 01/05/18 09:00 Globulin 3.5 gm/dL (2.2-3.9) 01/05/18 09:00 Albumin/Globulin Ratio 1.1 (1.0-2.1) 01/05/18 09:00 Procalcitonin 0.13 NG/ML (0.19-0.49) L 01/05/18 17:49 Venous Blood Potassium 3.7 mmol/L (3.6-5.2) 01/05/18 09:00 Urine Color Yellow (YELLOW) 01/05/18 20:58 Urine Clarity Clear (Clear) 01/05/18 20:58 Urine pH 6.0 (5.0-8.0) 01/05/18 20:58 Ur Specific [place] 1.045 (1.003-1.030) H 01/05/18 20:58 Urine Protein Negative mg/dL (NEGATIVE) 01/05/18 20:58 Urine Glucose (UA) Neg mg/dL (Normal) 01/05/18 20:58 Urine Ketones 20 mg/dL (NEGATIVE) 01/05/18 20:58 Urine Blood Negative (NEGATIVE) 01/05/18 20:58 Urine Nitrate Negative (NEGATIVE) 01/05/18 20:58 Urine Bilirubin Negative (NEGATIVE) 01/05/18 20:58 Urine Urobilinogen 0.2-1.0 mg/dL (0.2-1.0) 01/05/18 20:58 Ur Leukocyte Esterase Neg Marquez/uL (Negative) 01/05/18 20:58 Urine RBC (Auto) < 1 /hpf (0-3) 01/05/18 20:58 Urine Microscopic WBC < 1 /hpf (0-5) 01/05/18 20:58 Urine Opiates Screen Positive (NEGATIVE) H 01/05/18 20:58 Urine Methadone Screen Negative (NEGATIVE) 01/05/18 20:58 Ur Barbiturates Screen Negative (NEGATIVE) 01/05/18 20:58 Ur Phencyclidine Scrn Negative (NEGATIVE) 01/05/18 20:58 Ur Amphetamines Screen Negative (NEGATIVE) 01/05/18 20:58 U Benzodiazepines Scrn Negative (NEGATIVE) 01/05/18 20:58 U Oth Cocaine Metabols Positive (NEGATIVE) H 01/05/18 20:58 U Cannabinoids Screen Negative (NEGATIVE) 01/05/18 20:58 - Hospital Course Hospital Course: 52 yo male with history of DM2 and HTN came to [facility] ED on 01/05/18 with painful swelling and redness of the chin extending to the right cheek since 3 days ago. He was seen at [facility] ER on 01/03/18 and was given IV antibiotic. He was sent home with a prescription for oral antibiotic but never filled them up. [employer]ING ASSISTANT to ED, he woke up with much swelling and pain on his chin and had some difficulty enunciating words. He denied SOB or dysphagia. Also denied fever or chills. Patient had nasal surgery in Nov, 2017 because of bad infection in the nose. Mother claimed the nose was just irrigated. Patient admitted to snipping cocaine which caused the infection in his nose. The patient was supposed to take antibiotics after the nasal procedure but again never bothered filling up the prescription. He never followed with his physician who did his nose. Patient is very non-compliant even with his diabetic and BP medications. Last dose of Lantus was 3 weeks ago. He also never complied with his BP medications. Patient was admitted for complicated facial abscess. Had neck CT and maxillofacial CT ( please see report). ENT was involved and pt had I&D done 01/05. ID Dr. Vela was involed during pt's stay. Pt's wound c&s shows MRSA sensitive to vanomycin and zosyn. Today, pt reports swelling on chin and discharge significantly improved and he feels better. Has been afebrile and WBC is 8.4 today. Patient is medically stable to discharge home with Bactrim DS 1 tab po BID x 10 days (ID recommendation). Advised to f/u with PMD in 2-3 days. New medication on discharge: Bactrim DS 1 tab po BID x 10 days #20 Discharge Exam - Head Exam Head Exam: NORMAL INSPECTION, NORMOCEPHALIC - Eye Exam Eye Exam: EOMI, Normal appearance - ENT Exam ENT Exam: Mucous Membranes Moist, Normal Oropharynx Additional comments: Mild erythema and swelling on mid chin with +serosanguineous drainage ( improving) - Neck Exam Neck exam: Full Rom, Normal Inspection - Respiratory Exam Respiratory Exam: Clear to PA & Lateral, NORMAL BREATHING PATTERN. absent: Rales, Rhonchi, Wheezes - Cardiovascular Exam Cardiovascular Exam: REGULAR RHYTHM, RRR, +S1, +S2 - GI/Abdominal Exam GI & Abdominal Exam: Normal Bowel Sounds, Soft. absent: Tenderness - Extremities Exam Extremities exam: normal inspection, pedal pulses present - Neurological Exam Neurological exam: Alert, Oriented x3 - Psychiatric Exam Psychiatric exam: Normal Affect, Normal Mood - Skin Skin Exam: Normal Color, Warm Discharge Plan - Discharge Medications Prescriptions: Sulfamethoxazole/Trimethoprim [Bactrim DS 800 mg-160 mg] 1 tab PO BID #20 tab - Follow Up Plan Condition: FAIR Disposition: HOME/ ROUTINE Patient education suggested?: Yes Instructions: Cellulitis and Erysipelas (Skin Infections) Additional Instructions: Take medications as directed Please follow up with your PMD in 2-3 days.
[2018-01-07 12:06] VITALS: TEMP 98.1; O2SAT 92
[2018-01-07 12:13] VITALS: BP 166/91
[2018-01-07 12:14] VITALS: PULSE 57
== END 2018-01-07 14:30 | disposition home or self-care (01) | DRG 603 ==
LOC: H.ER 08:13 → H.ERHOLD 12:12 → H.TEL 14:02
PROC: 0H91XZZ Drainage of Face Skin, External Approach (ICD-10-PCS; principal; 2018-01-05)
DX: L02.01 Cutaneous abscess of face (principal); E11.65 Type 2 diabetes mellitus with hyperglycemia; I10 Essential (primary) hypertension; J32.0 Chronic maxillary sinusitis; J32.2 Chronic ethmoidal sinusitis; F17.210 Nicotine dependence, cigarettes, uncomplicated; Z91.14 Patient's other noncompliance with medication regimen; B95.62 Methicillin resistant Staphylococcus aureus infection as the cause of diseases classified elsewhere; F14.90 Cocaine use, unspecified, uncomplicated; F11.90 Opioid use, unspecified, uncomplicated; Z88.1 Allergy status to other antibiotic agents